=== PATIENT | male | born 1960 | race Caucasian/White ===

== ENCOUNTER 2025-01-16 13:33 | Emergency (ER) | payer OTHER ==
[2025-01-16] MEDS: IPRATROPIUM 0.5 MG/ALBUTEROL 2.5 MG INH SOL UD 3 ML NEB SCH (17:56)
[2025-01-16 19:00] LABS: BASO # 0.0 10^3/uL (0.0-0.2); BASO % 0.3 % (0.0-1.0); EOS # 0.1 10^3/uL (0.0-0.5); EOS % 1.5 % (0.0-3.0); LYMPH # 1.7 10^3/uL (1.5-5.0); LYMPH % 17.2 % (24.0-44.0); MONO # 0.9 10^3/uL (0.0-0.8); MONO % 9.6 % (2.0-8.0); NEUTROPHILS # 6.8 10^3/uL (1.5-8.5); NEUTROPHILS % 71.0 % (36.0-66.0); PLATELET COUNT, AUTOMATED 285 10^3/uL (150-450)
[2025-01-16] MEDS ORDERED: ISOVUE-370 76% 100 ML VIAL As Ordered ONE (19:16)
[2025-01-16 21:03] VITALS: BP 131/71; TEMP 99; O2SAT 92
[2025-01-16] MEDS ORDERED: VENTAER INH (21:07)
[2025-01-16] MEDS ORDERED: PRED20TA PO (21:07)
[2025-01-16] MEDS ORDERED: AMOX875T2 PO (21:07)
[2025-01-16] MEDS: predniSONE 20 MG TAB PO ONE (21:13)
[2025-01-16] MEDS: AUGMENTIN 875 MG TAB PO ONE (21:13)
== END 2025-01-16 21:35 | disposition home or self-care (01) ==
LOC: M ED 13:33
DX: J44.1 Chronic obstructive pulmonary disease with (acute) exacerbation (principal); I25.10 Atherosclerotic heart disease of native coronary artery without angina pectoris; R94.31 Abnormal electrocardiogram [ECG] [EKG]; Z95.810 Presence of automatic (implantable) cardiac defibrillator; Z95.1 Presence of aortocoronary bypass graft; Z90.49 Acquired absence of other specified parts of digestive tract
CPT/HCPCS: 36415; 71046; 71275; 80047; 83880; 84132; 85025; 87070; 87077; 87185; 87205; 87486; 87581; 87633; 87798; 93005; 93041; 94640; 94760; 99285; J7512; Q9967